=== PATIENT | female | born 1955 | race Caucasian/White ===

== ENCOUNTER 2022-08-27 14:20 | Outpatient (CLI) | payer BC, SELFPAY ==
--- NOTE | 2022-08-27 16:00 | CRLHL7_ITS ---
For Patients: As a result of the Century Cures Act, medical imaging exams and procedure reports are released immediately into your electronic medical record. You may view this report before your referring provider. If you have questions, please contact your health care provider. INDICATION: Leg pain and swelling. TECHNIQUE: Ultrasound venous duplex lower right extremity. Compression venous exam was performed using peng-scale, color Doppler, and spectral Doppler analysis. COMPARISON: None. FINDINGS: Deep veins: There is a below the knee DVT in 1 of the paired peroneal veins from the proximal to the distal calf. Remainder of the deep veins in the right lower extremity and the contralateral left common femoral vein are patent. Superficial veins: Greater saphenous vein is fully compressible. No popliteal cyst. IMPRESSION: Acute below the knee DVT in the right peroneal vein. Dictated by Luis Fernando Funez MD @ 08/27/2022 3:45:02 PM (Electronically Signed)
== END 2022-08-27 14:21 | disposition home or self-care (01) ==
PROVIDERS: Visit Provider Radiology Radiation Oncology
DX: M79.661 Pain in right lower leg (principal); I82.451 Acute embolism and thrombosis of right peroneal vein
CPT/HCPCS: 93971

== ENCOUNTER 2022-08-27 16:36 | Outpatient (REF) | payer BC, SELFPAY ==
[2022-08-27 17:49] LABS: Basophils Absolute Auto 0.03 K/uL (0.00-0.30); Basophils Percent Auto 0.5 % (0.0-3.0); Eosinophils Absolute Auto 0.08 K/uL (0.00-0.50); Eosinophils Percent Auto 1.4 % (0.0-7.0); Hematocrit 35.7 % (33.0-51.0); Hemoglobin* 11.2 gm/dL (12.0-16.0); Immature Granulocytes Abs Auto 0.01 K/uL (0.00-0.30); Mean Corpuscular HGB Conc 31 gm/dL (32-36); Mean Corpuscular Hemoglobin 30 pg (26-34); Mean Corpuscular Volume 94 fL (80-100); Monocytes Percent Auto 15.3 % (0.0-11.0); Neutrophils Percent Auto 73.6 % (42.0-72.0); Platelet Count* 346 K/uL (140-440); RDW Coefficient of Variation % 14.9 % (11.5-15.5); Red Blood Count 3.79 m/uL (4.00-5.20); White Blood Count* 5.55 K/uL (4.50-11.00)
[2022-08-27 18:01] LABS: Slide Review Reflex No
[2022-08-27 18:02] LABS: INR 0.95 (0.91-1.10); Prothrombin Time 13.3 Seconds
[2022-08-27 18:03] LABS: Partial Thromboplastin Time* 30 Seconds (23-33)
[2022-08-27 18:08] LABS: Chloride* 96 mmol/L (96-114); Potassium* 5.1 mmol/L (3.6-5.1); Sodium* 131 mmol/L (135-149)
[2022-08-27 18:10] LABS: Aspartate Amino Transferase* 21 U/L (12-35); Bilirubin Total* 0.4 mg/dL (0.1-1.5); Carbon Dioxide* 26 mmol/L (20-32); Creatinine* 0.5 mg/dL (0.5-1.5); Estimated Glomerular Filt Rate 102 ml/min
[2022-08-27 18:11] LABS: Alanine Aminotransferase* 13 U/L (4-35); Alkaline Phosphatase* 108 U/L (40-150); Blood Urea Nitrogen* 12 mg/dL (7-30); Calcium* 9.4 mg/dL (8.4-10.6); Glucose* 89 mg/dL (60-115)
== END 2022-08-27 16:37 | disposition home or self-care (01) ==
LOC: LAB 16:36
PROVIDERS: Visit Provider Radiology Radiation Oncology
DX: I82.401 Acute embolism and thrombosis of unspecified deep veins of right lower extremity (principal); C14.8 Malignant neoplasm of overlapping sites of lip, oral cavity and pharynx
CPT/HCPCS: 36415; 80053; 85025; 85610; 85730